=== PATIENT | male | born 1965 | race Caucasian/White ===

== ENCOUNTER 2021-04-13 00:55 | Day surgery (SDC) | payer OTHER, SELFPAY ==
[2021-04-01 14:26] VITALS: BMI 36.9
--- NOTE | 2021-04-12 11:36 | PM.HPGS ---
History of Present Illness History of Present Illness Consent: Risks, benefits, and alternatives have been discussed and questions answered. Patient agrees to proceed with procedure. Chief complaint: neoplasm screening Narrative: Jorge Mckay is a 55 year old male Who was referred for colon cancer screening. Review of Systems Review of Systems: All systems reviewed & are unremarkable except as noted in HPI and below PMFSH Past Medical History Medical History BMI 37.0-37.9, adult Surgical History Surgical History Hx of carpal tunnel repair Family History Family History Father Hypertension Family history of malignant neoplasm of brain Mother Family history of lung cancer Family history of emphysema Other Family history of malignant neoplasm Social History Social History Smoking status: Never smoker Alcohol intake: current Drinks per week: 3 Substance use: never Substance use type: does not use Living arrangements: with family Additional living arrangements comments: Gender identity (if verbalized by the patient): Male Sexual Orientation (if Verbalized by the Patient): Straight or Heterosexual Spiritual care concerns: No Agree to blood products: Yes Meds Home Medications and Allergies Home Medications Medication Instructions Recorded Confirmed Type No Home Medications 01/26/21 04/13/21 History Allergies Allergy/AdvReac Type Severity Reaction Status Date / Time niacin Allergy Unknown Unknown Verified 04/13/21 06:19 simvastatin Allergy Unknown Unknown Verified 04/13/21 06:19 Exam Const: General: alert Orientation/consciousness: patient oriented x3 Resp: Auscultation: clear to auscultation bilaterally Cardio: Rhythm: regular rhythm GI: GI Palp: Yes Soft to palpation and No Tenderness to palpation present (GI) Neuro: General: patient oriented x3 Assessment and Plan Assessment and plan (1) Screening for colon cancer: Code(s): Z12.11 - Encounter for screening for malignant neoplasm of colon Status: Acute Assessment and Plan: Colonoscopy with possible biopsy or polypectomy or cautery or injection of substances.
[2021-04-13 06:21] VITALS: BP 106/80; PULSE 92; RESP 18; TEMP 36.6; O2SAT 96
[2021-04-13] MEDS: LACTATED RINGERS 1,000 ML 150 ML IV CONT (06:32)
--- NOTE | 2021-04-13 07:12 | WPDANESEPPF ---
Anes - Initial Pre Proc Eval Procedure: Operation Date: 04/13/21 07:30 Proposed Procedures p Screening Colonoscopy - Joao Mott MD Date/Time: 04/13/21 07:12 Surgeon: Joao Mott MD Pre Op Diagnosis: neoplasm screening Patient Data Age: 55 Gender: M Height: 1.7 m Weight: 107.4 kg Last Vital Signs Temp 36.6 C 04/13/21 06:21 Pulse 92 04/13/21 06:21 Resp 18 04/13/21 06:21 BP 106/80 04/13/21 06:21 Pulse Ox 96 04/13/21 06:21 Allergies Allergy/AdvReac Type Severity Reaction Status Date / Time niacin Allergy Unknown Unknown Verified 04/13/21 06:19 simvastatin Allergy Unknown Unknown Verified 04/13/21 06:19 Home Medications Medication Instructions Recorded Confirmed Type No Home Medications 01/26/21 04/13/21 History Patient hx anesthesia problems: none Family hx anesthesia problems: none Results Review: All pre-operative results and documents have been reviewed as part of the pre-operative evaluation. [facility] Past Medical History Medical History (Updated 04/13/21 @ 07:13 by Stevo Koenig MD) BMI 37.0-37.9, adult Chronic pain of both knees Mixed hyperlipidemia Surgical History Surgical History Hx of carpal tunnel repair Family History Family History Father Hypertension Family history of malignant neoplasm of brain Mother Family history of lung cancer Family history of emphysema Other Family history of malignant neoplasm Social History Social History Smoking status: Never smoker Alcohol intake: current Drinks per week: 3 Substance use: never Substance use type: does not use Living arrangements: with family Additional living arrangements comments: Gender identity (if verbalized by the patient): Male Sexual Orientation (if Verbalized by the Patient): Straight or Heterosexual Spiritual care concerns: No Agree to blood products: Yes Anes - Eval Final PreProcedure Day of Procedure 04/13/21 07:12 Patient weight: obese Heart: regular rate and rhythm Lungs: clear to auscultation and normal air movement Airway: Mallampati scale class II Neurological: alert and oriented Last oral intake: >/= 8 hours ASA classification: II Emergent: no Anesthetic plan: proceed Anesthesia type and monitoring: general GIVS Results Review: All pre-operative results and documents have been reviewed as part of the pre-operative evaluation. Informed Consent: The patient's anesthetic plan and its attendant risks and benefits were discussed with the patient/family/POA. Questions were solicited and answers provided to the satisfaction of the patient/family/POA.
[2021-04-13 07:46] VITALS: BP 92/51; PULSE 102; RESP 22; O2SAT 92
[2021-04-13 07:56] VITALS: BP 100/68; PULSE 85; RESP 18; O2SAT 94
[2021-04-13 08:06] VITALS: BP 109/78; PULSE 90; RESP 19; O2SAT 95
== END 2021-04-13 08:13 | disposition home or self-care (01) ==
PROVIDERS: PCP Family Medicine; Visit Provider Internal Medicine Gastroenterology
PROC: 0DJD8ZZ Inspection of Lower Intestinal Tract, Via Natural or Artificial Opening Endoscopic (ICD-10-PCS; CPT 45378; principal; 2021-04-13 07:30)
DX: Z12.11 Encounter for screening for malignant neoplasm of colon (principal); D12.3 Benign neoplasm of transverse colon; K57.30 Diverticulosis of large intestine without perforation or abscess without bleeding; E66.9 Obesity, unspecified; Z68.37 Body mass index [BMI] 37.0-37.9, adult
CPT/HCPCS: 45385; 88305; J2704; J7120

== ENCOUNTER 2023-10-04 16:10 | Emergency (ER) | payer OTHER, SELFPAY ==
--- NOTE | ~2023-10-04 | CT_ITS ---
CT abdomen pelvis w con Ordering provider: Vinh Braxton History: 58 years Male with . lower abd pain . Comparison: None. Technique: CT abdomen and pelvis with IV and without oral contrast. Automated exposure control and it erative reconstruction technique were employed. The dose-length product was 1257.71 mGy-cm. 100 ML Om nipaque 350 was given IV. Findings: VISUALIZED LOWER CHEST: Normal. UPPER ABDOMINAL ORGANS: Liver: Normal. Gallbladder: Normal. Spleen: Normal. Stomach/duodenum: Normal. Pancreas: Normal. Adrenals: 1.1 cm right adrenal adenoma. Kidneys: Tiny stones in the left kidney lower pole. PELVIC ORGANS: The bladder is normal slightly thickened. Evaluation for cystitis advised.. BOWEL AND MESENTERY: Colon: Mild sigmoid diverticulosis without diverticulitis. Normal appendix. Small Bowel: Normal. No obstruction. Peritoneum/mesentery: No free air or free fluid. No mesenteric lymphadenopathy. RETROPERITONEUM: Normal aorta. Retroaortic left renal vein. No retroperitoneal lymphadenopathy. MUSCULOSKELETAL: Superficial soft tissues: Left fat-containing inguinal hernia. Otherwise, The superficial soft tissue s are normal. Bones: Age appropriate degenerative changes of the spine. Bilateral sacroiliitis. IMPRESSION: 1. Tiny stones in the left kidney lower pole. 2. Left fat-containing inguinal hernia. 3. No evidence of appendicitis, diverticulitis or intestinal obstruction. 4. Slightly thickened wall of the urinary bladder evaluation for cystitis advised. Reviewed, dictated and finalized at location A. IMPRESSION: 1. Tiny stones in the left kidney lower pole. 2. Left fat-containing inguinal hernia. 3. No evidence of appendicitis, diverticulitis or intestinal obstruction. 4. Slightly thickened wall of the urinary bladder evaluation for cystitis advi sed.
[2023-10-04 16:15] VITALS: BP 147/81; PULSE 75; RESP 18; TEMP 36.4; O2SAT 98
--- NOTE | 2023-10-04 16:16 | ED.GIBLEED ---
HPI - GI Bleed General Chief complaint: GI Bleed <Vinh Braxton APRN - Last Filed: 10/04/23 16:17> Stated complaint: blood in stool <Vinh Braxton APRN - Last Filed: 10/04/23 16:17> Time Seen by Provider: 10/04/23 20:11 <Vinh Braxton APRN - Last Filed: 10/04/23 16:17> Focused HPI: 58-year-old male presents to the emergency room for evaluation of 2 episodes of bloody stool that occurred yesterday. Patient has been complaining of left lower quadrant abdominal pain intermittently since December. States last bowel movement was today, and has been regular. Denies fevers. GENERAL: Well-appearing, well-nourished, and in no acute distress. HEAD: Normocephalic, atraumatic. CHEST: Clear to auscultation. No respiratory distress. HEART: Regular rate and rhythm. NEURO: Alert and oriented x3. Patient screened in triage and initial orders placed. Additional care and disposition to be based upon diagnostic testing and treatment. <Vinh Braxton APRN - Last Filed: 10/04/23 16:17> History of Present Illness HPI Narrative: patient is a 58-year-old gentleman presents emergency department with chief complaint of blood in the bowel movement. Patient reports for the last several weeks he has had some blood on toilet primary as a bowel movement. Patient reports had some fullness in his abdomen lower quadrants patient denies fever denies vomiting patient reports that he has a normal formed stool that is not blood streak or does not have blood mixed in it <Alfredo Israel MD - Last Filed: 10/04/23 22:19> Related Data Home medications: Home Medications Medication Instructions Recorded Confirmed No Home Medications 01/26/21 04/13/21 <Vinh Braxton APRN - Last Filed: 10/04/23 16:17> Allergies/Adverse reactions: Allergies Allergy/AdvReac Type Severity Reaction Status Date / Time niacin Allergy Unknown Unknown Verified 10/04/23 16:12 simvastatin Allergy Unknown Unknown Verified 10/04/23 16:12 <Vinh Braxton APRN - Last Filed: 10/04/23 16:17> Review of Systems Review of Systems: A 10 system review of systems was completed on the patient and is negative except for what is stated in the HPI. Nursing and ancillary documentation was reviewed. <Alfredo Israel MD - Last Filed: 10/04/23 22:19> PMFSH Past Medical History Medical History: Medical History BMI 37.0-37.9, adult Chronic pain of both knees Mixed hyperlipidemia <Vinh Braxton, MILL MANAGER - Last Filed: 10/04/23 16:17> Surgical History Surgical History: Surgical History Hx of carpal tunnel repair <Vnih Braxton MILL MANAGER - Last Filed: 10/04/23 16:17> Family History Family History: Family History Father Hypertension Family history of malignant neoplasm of brain Mother Family history of lung cancer Family history of emphysema Other Family history of malignant neoplasm <Vinh Braxton, MILL MANAGER - Last Filed: 10/04/23 16:17> Social History Social History: Social History Smoking status: Never smoker Alcohol intake: current Drinks per week: 3 Substance use: never Substance use type: does not use Living arrangements: with family Additional living arrangements comments: Occupation/Education: retired Gender identity (if verbalized by the patient): Male Sexual Orientation (if Verbalized by the Patient): Straight or Heterosexual Spiritual care concerns: No Agree to blood products: Yes <Vinh Braxton, MILL MANAGER - Last Filed: 10/04/23 16:17> Exam Narrative: GENERAL: Well-appearing, well-nourished, and in no acute distress. HEAD: Normocephalic, atraumatic. EYES: PERRLA and EOMI. ENT: Nares clear,
[2023-10-04 17:14] LABS: Basophils Absolute Auto 0.1 K/mm3 (0.0-0.1); Basophils Percent Auto 0.7 % (0.2-1.2); Eosinophils Absolute Auto 0.1 K/mm3 (0-0.3); Eosinophils Percent Auto 0.9 % (0-4.4); Hematocrit 41.5 % (42.0-52.0); Immature Granulocyte Absolute 0.03 K/mm3 (0.00-0.031); Immature Granulocyte Percent A 0.3 % (0-0.5); Lymphocytes Percent Auto 23.9 % (18.3-44.2); Mean Corpuscular HGB Conc 33.7 g/dl (32-36); Mean Corpuscular Hemoglobin 31.7 pg (26-34); Mean Corpuscular Volume 94.1 fl (80-100); Mean Platelet Volume 9.4 fl (7.4-10.4); Monocytes Absolute Auto 0.9 K/mm3 (0.1-0.6); Monocytes Percent Auto 9.2 % (2.6-8.5); Platelet Count Result 277 k/mm3 (150-375); Red Blood Count 4.41 M/mm3 (4.6-6.20); Red Cell Distribution Width 12.3 % (11.5-14.5); White Blood Count 9.2 K/mm3 (4.5-10.0)
[2023-10-04 17:23] LABS: Alanine Aminotransferase 37 U/L (6-50); Albumin Level 4.4 g/dL (3.5-5.1); Alkaline Phosphatase 51 U/L (38-126); Anion Gap 9 mmol/L (4-12); Aspartate Amino Transferase 28 U/L (17-59); Bilirubin,Total 0.9 mg/dL (0.2-1.3); Blood Urea Nitrogen 23 mg/dL (9-20); Calcium 9.2 mg/dL (8.4-10.2); Carbon Dioxide 27 mmol/L (22-30); Chloride 103 mmol/L (98-107); Estimated CRCL calculation 81 ml/min; Estimated Glomerular Filt Rate > 60; Glucose 89 mg/dL (65-110); Lipase 59 U/L (23-300); Potassium 3.9 mmol/L (3.4-5.0); Sodium 139 mmol/L (137-145)
[2023-10-04 20:13] VITALS: BP 147/86; PULSE 63; RESP 18; TEMP 36.8; O2SAT 96
[2023-10-04 22:30] VITALS: BP 145/72; PULSE 67; RESP 18; TEMP 36.8; O2SAT 98
== END 2023-10-04 22:31 | disposition home or self-care (01) ==
PROVIDERS: Nurse Practitioner Family; Emergency Provider Emergency Medicine
DX: K62.5 Hemorrhage of anus and rectum (principal); R10.9 Unspecified abdominal pain; E78.2 Mixed hyperlipidemia
CPT/HCPCS: 36415; 74177; 80053; 83690; 85025; 99284; Q9967

== ENCOUNTER 2023-10-15 10:48 | Outpatient (CLI) | payer OTHER, SELFPAY ==
--- NOTE | ~2023-10-15 | XR_ITS ---
3 VIEWS LUMBAR SPINE Ordering provider: Mac Boudreaux MD History: . Back pain . Comparison: None. FINDINGS: VERTEBRAL BODIES: No visible fracture or subluxation. Degenerative changes. DISK SPACES: Narrowing of the disc L3-L4, L4-L5 and L5-S1. Multilevel facet joint disease. SOFT TISSUES: Normal. Bilateral sacroiliacs. IMPRESSION: No acute osseous abnormality lumbar spine. Reviewed, dictated and finalized at location A.
--- NOTE | ~2023-10-15 | XR_ITS ---
3 VIEWS THORACIC SPINE Ordering provider: Mac Boudreaux MD History: . Back pain . Comparison: None. FINDINGS: VERTEBRAL BODIES: Normal height and alignment. No visible fracture or subluxation. Degenerative bunch es of the spine. DISK SPACES: Normal. SOFT TISSUES: Normal. IMPRESSION: No acute osseous abnormality of the thoracic spine. Reviewed, dictated and finalized at location A.
== END 2023-10-15 10:49 ==
LOC: MICIMG 10:50
PROVIDERS: PCP Emergency Medicine; Visit Provider Emergency Medicine
DX: M54.9 Dorsalgia, unspecified (principal)
CPT/HCPCS: 72072; 72100

== ENCOUNTER 2023-12-05 07:00 | Outpatient (NON) | payer OTHER, SELFPAY | END 2023-12-05 07:01 | disposition home or self-care (01) | LOC: ANHLAB 12-06 07:05 | PROVIDERS: PCP Emergency Medicine; Visit Provider Internal Medicine Gastroenterology | DX: Z86.010 Personal history of colon polyps (principal) | CPT/HCPCS: 88305 ==

== ENCOUNTER 2023-12-05 07:08 | Day surgery (SDC) | payer OTHER, SELFPAY ==
[2023-11-02 12:07] VITALS: BMI 37.0
[2023-11-09 10:03] VITALS: BMI 36.9
[2023-12-05 08:36] VITALS: BMI 37.0
[2023-12-05 08:37] VITALS: BP 128/94; PULSE 78; RESP 18; TEMP 36.4; O2SAT 97
--- NOTE | 2023-12-05 08:44 | PM.HPGS ---
History of Present Illness History of Present Illness Consent: Risks, benefits, and alternatives have been discussed and questions answered. Patient agrees to proceed with procedure. Chief complaint: Unspecified abdominal pain,hemorrhage of anus Narrative: Jorge Mckay is a 58 year old male PMF Past Medical History Medical History Bilateral sacroiliitis BMI 37.0-37.9, adult Chronic pain of both knees Mixed hyperlipidemia Surgical History Surgical History Hx of carpal tunnel repair Family History Family History Father Hypertension Family history of malignant neoplasm of brain Mother Family history of lung cancer Family history of emphysema Other Family history of malignant neoplasm Social History Social History (Updated 11/12/23 @ 10:10 by Samira Elizalde CMA) Smoking status: Never smoker Alcohol intake: current Drinks per week: 3 Alcohol use details: beer Substance use: never Substance use type: does not use Do You Feel Safe in your Home?: Yes Lack of Transportation: No Lack of Food: Never True Current Housing: I Have Housing Concerned About Future Housing: No Difficulty Paying Gas/Electric Bills: No Difficulty Paying for Meds: Decline to Answer Currently Unemployed: Decline to Answer Education: High School Diploma/GED Difficulty w/ Childcare or Family Care: No Living arrangements: with family Additional living arrangements comments: Occupation/Education: retired Gender identity (if verbalized by the patient): Male Sexual Orientation (if Verbalized by the Patient): Straight or Heterosexual Spiritual care concerns: No Agree to blood products: Yes Meds Home Medications and Allergies Home Medications Medication Instructions Recorded Confirmed Type No Home Medications 11/09/23 12/05/23 History Allergies Allergy/AdvReac Type Severity Reaction Status Date / Time simvastatin Allergy Mild Flushing Verified 12/05/23 08:24 niacin Allergy Unknown Unknown Verified 12/05/23 08:24 Vital Signs Vital Signs - 24 hr 12/05/23 08:37 Temperature 97.6 F Pulse Rate 78 Respiratory Rate 18 Blood Pressure 128/94 H Pulse Oximetry 97 Oxygen Delivery Room Air
[2023-12-05] MEDS: LACTATED RINGERS 1,000 ML 150 ML IV CONT (08:48)
--- NOTE | 2023-12-05 08:54 | PM.HPGS ---
History of Present Illness History of Present Illness Consent: Risks, benefits, and alternatives have been discussed and questions answered. Patient agrees to proceed with procedure. Chief complaint: BRBPR Narrative: Jorge Mckay is a 58 year old male referred for colonoscopy. Patient is noticed 5 episodes of bright red blood per rectum after a bowel movement over the last year. He does notice rather vague low abdominal discomfort shortly before his bowel movement. This not a continue sent. Has been sometime since this occurred. Patient denies any weight loss. He does have a colonoscopy by history 2 years ago which revealed some colon polyps. Patient presents today for follow-up colonoscopy given his occasional rectal bleeding. Family history is noncontributory. Review of Systems Review of Systems: All systems reviewed & are unremarkable except as noted in HPI and below PMFSH Past Medical History Medical History Bilateral sacroiliitis BMI 37.0-37.9, adult Chronic pain of both knees Mixed hyperlipidemia Surgical History Surgical History Hx of carpal tunnel repair Family History Family History Father Hypertension Family history of malignant neoplasm of brain Mother Family history of lung cancer Family history of emphysema Other Family history of malignant neoplasm Social History Social History (Updated 11/12/23 @ 10:10 by Samira Elizalde CMA) Smoking status: Never smoker Alcohol intake: current Drinks per week: 3 Alcohol use details: beer Substance use: never Substance use type: does not use Do You Feel Safe in your Home?: Yes Lack of Transportation: No Lack of Food: Never True Current Housing: I Have Housing Concerned About Future Housing: No Difficulty Paying Gas/Electric Bills: No Difficulty Paying for Meds: Decline to Answer Currently Unemployed: Decline to Answer Education: High School Diploma/GED Difficulty w/ Childcare or Family Care: No Living arrangements: with family Additional living arrangements comments: Occupation/Education: retired Gender identity (if verbalized by the patient): Male Sexual Orientation (if Verbalized by the Patient): Straight or Heterosexual Spiritual care concerns: No Agree to blood products: Yes Meds Home Medications and Allergies Home Medications Medication Instructions Recorded Confirmed Type No Home Medications 11/09/23 12/05/23 History Allergies Allergy/AdvReac Type Severity Reaction Status Date / Time simvastatin Allergy Mild Flushing Verified 12/05/23 08:24 niacin Allergy Unknown Unknown Verified 12/05/23 08:24 Vital Signs Vital Signs - 24 hr 12/05/23 08:37 Temperature 97.6 F Pulse Rate 78 Respiratory Rate 18 Blood Pressure 128/94 H Pulse Oximetry 97 Oxygen Delivery Room Air Exam Narrative: Physical exam reveals patient to be alert. Vital signs stable. HEENT exam is unremarkable. Patient is anicteric. Lungs are clear to auscultation and percussion. Heart is without murmur or extra sounds. Abdomen bowel sounds are present soft nontender with no organomegaly. External rectal exam normal. Assessment and Plan Assessment and plan (1) Rectal bleed: Code(s): K62.5 - Hemorrhage of anus and rectum Status: Inactive Assessment and Plan: Patient with several episodes of bright red blood per rectum over the last year. Colonoscopy has been requested. Recommend patient try fiber supplementation such as Metamucil as this may be hemorrhoid. Further recommendations may be given after endoscopy. (2) History of colon polyps: Code(s): Z86.010 - Personal history of colonic polyps Status: Acute Assessment and Plan: Follow-up colonoscopy at 5 year intervals is s
--- NOTE | 2023-12-05 08:55 | WPDANESEPPF ---
Anes - Initial Pre Proc Eval Procedure: Operation Date: 12/05/23 09:30 Proposed Procedures p Diagnostic Colonoscopy - Eligio Bhardwaj MD Date/Time: 12/05/23 08:55 Surgeon: Eligio Bhardwaj MD Pre Op Diagnosis: Unspecified abdominal pain,hemorrhage of anus Patient Data Age: 58 Gender: M Height: 1.7 m Weight: 107.2 kg Last Vital Signs Temp 36.4 C 12/05/23 08:37 Pulse 78 12/05/23 08:37 Resp 18 12/05/23 08:37 BP 128/94 H 12/05/23 08:37 Pulse Ox 97 12/05/23 08:37 O2 Del Method Room Air 12/05/23 08:37 Allergies Allergy/AdvReac Type Severity Reaction Status Date / Time simvastatin Allergy Mild Flushing Verified 12/05/23 08:24 niacin Allergy Unknown Unknown Verified 12/05/23 08:24 Home Medications Medication Instructions Recorded Confirmed Type No Home Medications 11/09/23 12/05/23 History Patient hx anesthesia problems: none Family hx anesthesia problems: none Results Review: All pre-operative results and documents have been reviewed as part of the pre-operative evaluation. [facility] Past Medical History Medical History Bilateral sacroiliitis BMI 37.0-37.9, adult Chronic pain of both knees Mixed hyperlipidemia Surgical History Surgical History Hx of carpal tunnel repair Family History Family History Father Hypertension Family history of malignant neoplasm of brain Mother Family history of lung cancer Family history of emphysema Other Family history of malignant neoplasm Social History Social History Smoking status: Never smoker Alcohol intake: current Drinks per week: 3 Alcohol use details: beer Substance use: never Substance use type: does not use Do You Feel Safe in your Home?: Yes Lack of Transportation: No Lack of Food: Never True Current Housing: I Have Housing Concerned About Future Housing: No Difficulty Paying Gas/Electric Bills: No Difficulty Paying for Meds: Decline to Answer Currently Unemployed: Decline to Answer Education: High School Diploma/GED Difficulty w/ Childcare or Family Care: No Living arrangements: with family Additional living arrangements comments: Occupation/Education: retired Gender identity (if verbalized by the patient): Male Sexual Orientation (if Verbalized by the Patient): Straight or Heterosexual Spiritual care concerns: No Agree to blood products: Yes Anes - Eval Final PreProcedure Day of Procedure 12/05/23 08:55 Patient weight: obese Heart: regular rate and rhythm Lungs: clear to auscultation Airway: Mallampati scale class III Neurological: alert and oriented Last oral intake: >/= 8 hours ASA classification: III Emergent: no Anesthetic plan: proceed Results Review: All pre-operative results and documents have been reviewed as part of the pre-operative evaluation. Informed Consent: The patient's anesthetic plan and its attendant risks and benefits were discussed with the patient/family/POA. Questions were solicited and answers provided to the satisfaction of the patient/family/POA.
[2023-12-05 09:20] VITALS: BP 102/82; PULSE 74; RESP 16; O2SAT 93
[2023-12-05 09:30] VITALS: BP 117/85; PULSE 71; RESP 18; O2SAT 95
[2023-12-05 09:40] VITALS: BP 116/84; PULSE 69; RESP 18; O2SAT 97
--- NOTE | 2023-12-05 10:32 | WPDANESPN ---
Anes - Prog Note Post-Op Date/Time: 12/05/23 10:32 Cardiovascular status: normal Respiratory status: normal Airway patency: baseline Mental status: baseline Post-Op hydration status: normal Vital Signs: Last Vital Signs Temp 36.4 C 12/05/23 08:37 Pulse 69 12/05/23 09:40 Resp 18 12/05/23 09:40 BP 116/84 12/05/23 09:40 Pulse Ox 97 12/05/23 09:40 O2 Del Method Room Air 12/05/23 09:40 Pain Score (VAS): 0 I/O: Intake & Output 12/04/23 12/05/23 12/05/23 23:59 07:59 15:59 Intake Total 100 Balance 100 Post-procedural complaints: none Patient Feedback: Patient satisfied with anesthetic care.
== END 2023-12-05 09:54 | disposition home or self-care (01) ==
PROVIDERS: PCP Emergency Medicine; Visit Provider Internal Medicine Gastroenterology
PROC: 0DJD8ZZ Inspection of Lower Intestinal Tract, Via Natural or Artificial Opening Endoscopic (ICD-10-PCS; CPT 45378; principal; 2023-12-05 09:30)
DX: Z86.010 Personal history of colon polyps (principal); K62.5 Hemorrhage of anus and rectum; D12.3 Benign neoplasm of transverse colon; K57.30 Diverticulosis of large intestine without perforation or abscess without bleeding; K64.8 Other hemorrhoids
CPT/HCPCS: 45385